=== PATIENT | male | born 1960 | race Caucasian/White ===

== ENCOUNTER 2023-02-26 09:15 | Emergency (ER) | payer BC ==
[~2023-02-26] VITALS: Ht 177.8 cm; Wt 86.2 kg
[~2023-02-26 09:15] MED LIST: ALPHA LIPOIC ACID; CALCIUM LACTATE; CATALYN; DRENAMIN; EXFORGE 5 MG; HYPOTHALMEX; PROLAMINE IODINE; TRACE MINERALS; TUNA OMEGA 3 OIL; [UNRECOGNIZED DRUG - OTHER]; [UNRECOGNIZED DRUG - OTHER]
[2023-02-26] MEDS ORDERED: VALSARTAN160 MG PO (09:44)
[2023-02-26] MEDS ORDERED: AMLODIPINE BESY10 MG PO (09:44)
[2023-02-26] MEDS ORDERED: ASPIRIN81 M1 PO (09:47)
[2023-02-26 10:09] LABS: BASO % 0.1 % (0.0-1.0); EOS % 0.1 % (1.0-4.0); HEMATOCRIT 48.4 % (42.0-52.0); LYMPH # 0.9 10*3/uL (1.3-4.4); LYMPH % 13.2 % (27.0-41.0); MEAN CORPUSCULAR HGB 30.3 pg (27.0-31.0); MEAN CORPUSCULAR HGB CONC 33.7 g/dl (33.0-37.0); MEAN PLATELET VOLUME 10.2 fl (9.6-12.3); MONO # 0.3 10*3/uL (0.1-1.0); MONO % 4.7 % (3.0-9.0); NEUT # 5.6 10*3/uL (2.3-7.9); NEUT % 81.8 % (47.0-73.0); PLATELET COUNT AUTOMATED 217 10*3/uL (130-400); RED BLOOD COUNT 5.38 10*6/uL (4.50-5.90); RED CELL DISTRI WIDTH 13.2 % (0-14.5); WHITE BLOOD COUNT 6.8 10*3/uL (4.8-10.8)
[2023-02-26 10:25] LABS: ACT PARTIAL THROMBO TIME 28.2 SECONDS (20.0-32.1)
[2023-02-26 10:38] LABS: ALKALINE PHOSPHATASE 79 U/L (46-116); BUN 10 mg/dl (9-23); CHLORIDE 105 mmol/L (98-107); POTASSIUM 3.4 mmol/L (3.4-5.1); SGPT/ALT 17 U/L (10-49); TOTAL PROTEIN 7.4 gm/dL (6.0-8.0)
== END 2023-02-26 17:39 | disposition short-term general hospital (02) ==
LOC: ED 09:15
PROVIDERS: Student in an Organized Health Care Education/Training Program
DX: I63.9 Cerebral infarction, unspecified (principal); Z79.899 Other long term (current) drug therapy; Z79.82 Long term (current) use of aspirin